=== PATIENT | female | born 1985 | race Caucasian/White ===

== ENCOUNTER 2022-01-08 14:12 | Emergency (ER) | payer BC ==
[~2022-01-08] VITALS: Ht 157.5 cm; Wt 71.0 kg
[2022-01-08 15:25] VITALS: BP 125/46
[2022-01-08] MEDS ORDERED: IBUP800T27 PO (17:25)
[2022-01-08] MEDS ORDERED: CYCL-837 PO (17:25)
== END 2022-01-08 17:29 | disposition home or self-care (01) ==
LOC: ER 14:12
DX: M62.838 Other muscle spasm (principal); Z79.1 Long term (current) use of non-steroidal anti-inflammatories (NSAID); Z79.899 Other long term (current) drug therapy; V89.2XXA Person injured in unspecified motor-vehicle accident, traffic, initial encounter; Y93.89 Activity, other specified; Y92.410 Unspecified street and highway as the place of occurrence of the external cause; Y99.8 Other external cause status
CPT/HCPCS: 70450; 72125; 74176; 81025